=== PATIENT | female | born 1950 | race Caucasian/White ===

== ENCOUNTER 2024-10-07 08:44 | Outpatient (CLI) | payer MEDICARE | END 2024-10-07 08:45 | disposition home or self-care (01) | LOC: BICMAMMO 08:44 | PROVIDERS: ATTEND Family Medicine Sports Medicine | DX: Z12.31 Encounter for screening mammogram for malignant neoplasm of breast (principal); Z78.0 Asymptomatic menopausal state; M85.89 Other specified disorders of bone density and structure, multiple sites; Z85.828 Personal history of other malignant neoplasm of skin; Z90.12 Acquired absence of left breast and nipple | CPT/HCPCS: 77063; 77067; 77080 ==